=== PATIENT | female | born 1990 | race Caucasian/White ===

== ENCOUNTER 2017-08-27 19:21 | Emergency (ER) | payer SELFPAY ==
[~2017-08-27] VITALS: Ht 154.9 cm; Wt 55.8 kg
[2017-08-27 19:27] VITALS: Ht 154.9 cm; Wt 55.8 kg
[2017-08-27 20:14] VITALS: BP 125/79
== END 2017-08-27 20:14 | disposition other institution (70) ==
LOC: ED 19:21
DX: R07.89 Other chest pain (principal); F15.10 Other stimulant abuse, uncomplicated; F17.210 Nicotine dependence, cigarettes, uncomplicated; B19.20 Unspecified viral hepatitis C without hepatic coma; Z59.0 Homelessness; Z71.6 Tobacco abuse counseling

== ENCOUNTER 2017-08-27 19:21 | Emergency (ER) | payer OTHER | END 2017-08-27 20:14 | disposition other institution (70) | LOC: ED 19:21 | DX: Z02.89 Encounter for other administrative examinations (principal) ==

== ENCOUNTER 2018-02-12 01:55 | Emergency (ER) | payer SELFPAY ==
[~2018-02-12] VITALS: Ht 157.5 cm; Wt 54.4 kg
[2018-02-12 02:07] VITALS: Ht 157.5 cm; Wt 54.4 kg
[2018-02-12 03:12] VITALS: BP 113/88
== END 2018-02-12 03:12 | disposition home or self-care (01) ==
LOC: ED 01:55 → EDBD 01:55 → ED 03:12
DX: H66.91 Otitis media, unspecified, right ear (principal); R51 Headache; R50.9 Fever, unspecified